=== PATIENT | male | born 1935 | race Caucasian/White ===

== ENCOUNTER 2018-10-03 17:04 | Inpatient (IN) ==
[2018-10-03] MEDS ORDERED: Dextrose Gel 15 GM/37.5 ML TUBE PO PRN ×2 (18:51)
[2018-10-03] MEDS ORDERED: D5% in Water 1,000 ML IVC PRN (18:51)
[2018-10-03] MEDS ORDERED: *HR* Dextrose 50 % in Water (Syg) 50 ML SYRINGE IVP PRN (18:51)
[2018-10-03] MEDS: Insulin LISPRO 300 UNITS/3 ML VIAL SQ SCH (21:41)
[2018-10-04] MEDS ORDERED: *HR* OxyCODONE Immed Rel 5 MG TABLET PO PRN (00:21)
[2018-10-04 07:20] LABS: Basophils # 0.1 K/mcL (0.0-0.2); Basophils % 0.8 %; Eosinophils # 0.2 K/mcL (0.0-0.6); Eosinophils % 1.5 %; Hematocrit 31.4 % (37.5-50.1); Hemoglobin 10.2 g/dL (12.9-16.9); Immature Granulocytes % 0.4 % (0-4); Lymphocytes # 1.6 K/mcL (0.6-4.6); Lymphocytes % 14.6 %; Mean Corpuscular HGB Conc 32.5 g/dL (31.6-35.5); Mean Corpuscular Volume 89.2 fL (83.0-100.0); Mean Platelet Volume 9.4 fL (9.4-12.4); Monocytes % 9.3 %; Neutrophils # 8.1 K/mcL (1.6-8.9); Platelet Count 353 K/mcL (140-400); Red Blood Count 3.52 M/mcL (4.19-5.50); Red Cell Distribution Width 12.4 % (11.5-14.5); Segmented Neutrophils % 73.4 %
[2018-10-04 07:34] LABS: BUN/Creatinine Ratio 41 (6-26); Blood Urea Nitrogen 26 mg/dL (8-23); Calcium 8.6 mg/dL (8.6-10.3); Carbon Dioxide 31 mEq/L (23-29); Chloride 101 mEq/L (98-107); Glucose 111 mg/dL (70-105); Osmolality,Calculated 285 (280-300); Potassium 4.5 mEq/L (3.5-5.1); Sodium 135 mEq/L (136-145); eGFR For Non-African Americans > 60 (> 60)
[2018-10-04] MEDS: *HR* Enoxaparin 40 MG/0.4 ML SYRINGE SQ SCH (07:40)
[2018-10-04] MEDS: Insulin LISPRO 300 UNITS/3 ML VIAL SQ SCH ×4 (08:23→21:09)
[2018-10-04] MEDS: *HR* GlipiZIDE 5 MG TABLET PO SCH ×3 (09:12→17:45)
[2018-10-04] MEDS: Sennosides/Docusate Sodium TABLET PO SCH (09:12)
--- NOTE | 2018-10-04 10:55 | Internal Med History&Physical ---
Date of Encounter: 10/04/18 Time of Encounter: 10:03 Assessment and Plan (1) Status post transmetatarsal amputation of right foot Current visit: Yes Status: Acute Patient status post right transmetatarsal amputation due to diabetic foot ulcer and gangrene. Incision site is intact and healing appropriately. No obvious signs of secondary infection. Some other superficial blister and wounds are noted without complication. He will have PT and OT for safety transfers and ambulation. The plan will be for him to return to home when it is safe to do so . (2) Fall Current visit: No Status: Acute Status post fall at [place] with hematoma on the right eyebrow area and periorbital bruising on the right side. No complication noted. No intervention for now. Qualifiers: Encounter type: initial encounter Qualified Code(s): W19.XXXA - Unspecified fall, initial encounter (3) UTI (urinary tract infection) Current visit: No Status: Resolved History of pseudomonas UTI at [place]. He was given a one day fosfomycin treatment. He has no urinary symptoms currently. Qualifiers: Urinary tract infection type: acute cystitis Hematuria presence: without hematuria Qualified Code(s): N30.00 - Acute cystitis without hematuria (4) Anemia Current visit: Yes Status: Chronic Chronic history anemia and uses iron. No other intervention for now. Qualifiers: Anemia type: unspecified type Qualified Code(s): D64.9 - Anemia, unspecified (5) DM type 2 causing complication Current visit: Yes Status: Chronic History of diabetes mellitus. However his A1c is under good control at 6.2%. We will follow his Accu-Cheks. Sliding scale available for coverage as we anticipate change in ambulation activity, recent surgery, etc. may alter his sugar control. Qualifiers: Diabetes mellitus salvage determiner insulin use: without long-term use Qualified Code(s): E11.8 - Type 2 diabetes mellitus with unspecified complications (6) PVD (peripheral vascular disease) Current visit: Yes Status: Chronic Known peripheral vascular disease and recent right revascularization of the r ight lower extremity prior to surgery. No obvious ischemic symptoms or problems noted currently (7) Constipation Current visit: Yes Status: Acute He is having some constipation and we will add medication if needed. He chronically takes senna as well. This may be related to recent surgery, bed rest and pain medication. Qualifiers: Constipation type: drug induced constipation Qualified Code(s): K59.03 - Drug induced constipation (8) DVT prophylaxis Current visit: Yes Status: Acute He will be on Lovenox for DVT prophylaxis. Internal Medicine - H&P: HPI Chief complaint: I am here to get stronger after surgery Admitted From: Hospital to Hospital Transfer Plans for Post Hospital Care: Home History of present illness: Mr. Marvin is a 82 year old male with known history of diabetes, diabetic neuropathy, peripheral vascular disease was transferred to our facility for swing bed for therapies regarding his nonweightbearing status of the right foot following transmetatarsal amputation due to diabetic ulcer and gangrene. Patient has long-standing history of diabetes and now has diabetic neuropathy as well as peripheral vascular disease. He underwent a right femoral tibial per moran trunk bypass graft with vein and right popliteal and tibial peroneal trunk and peroneal artery endarterectomy on 08/28/[address] Balderrama prior to undergoing right transmetatarsal amputation by Dr. Marinelli on 09/25/18 for diabetic foot ulcer and gangrene. It is reported that his incision is healing well, but he is supposed to be nonweightbearing until further evaluation by the surgeon. Patient states the pain is under reasonable control except he does feel a bit of "stinging" on the bottom of the right foot. Does not have much pain because of his neuropathy. He came with specific dressing changes and treatments. During the hospital stay at [place] he also, when getting out of bed, sustained a fall and has hematoma on the right eyebrow area and bruising around the right eye. He had no loss of consciousness or complication from this. Also, he had some confusion and was found to have a UTI. He was placed on Keflex but later found out the culture was positive for Pseudomonas that was resistant to Keflex and placed on fosfomycin, 1 day treatment. He denies any urinary symptoms or dysuria. Denies fevers or chills. Patient is a history of diabetes mellitus and it is under good control with the latest glycohemoglobin of 6.2%. He is admitted to our facility for PT and OT in swing bed for therapies to get him ambulating in a nonweightbearing status right foot, making safe transfers and plan to be discharged to home. He has 3 steps to get into his 1 story home. Past Med Surg Social Fam HX - Past Medical History Medical history: diabetes, GERD, hypertension, other Additional medical history: osteomylitis, PVD, peripheral neuropathy of both feet. Psychiatric history: no psych history - Past Surgical History Surgical History: appendectomy, cataract, orthopedic, other, vascular surgery (Right femoral tibial peroneal trunk bypass graft with vein and right popliteal and tibial peroneal trunk and peroneal artery endarterectomy 08/[address] Balderrama), other Additional surgical history: back surgery, Left toe foot surgery, recent right transmetatarsal amputation for gangrene and diabetic ulcer - Social History Smoking Status: Never smoker Smokeless Tobacco Status: No Alcohol use: none Drug use: none Activity Level: Uses cane/walker (Since surgery is nonweightbearing on the right lower extremity) Recent Out of Country Travel Within the Last 8 Weeks: No Exposure or Possible Exposure to Illness During Travel: No Additional social history: He has 3 steps to negotiate to get into his one-story home. He uses a bath, cannot stand up in the shower. His son and are ther e to help him. He does not have any grab bars, rails for his toilet etc. - Family History Son Adopted: No Living Status: Still Living Hx Family Endocrine Disorder: Yes (DIABETES, LOST EYE SIGHT DUE TO DIABETIC COMPLICATIONS) Father History Unknown: Yes Family Member Ethnicity: Non- Living Status: Hx Family Cardiac Disorders: No Hx Family Respiratory Disorders: No Hx Family Cancer: No Hx Family GI Disorders: No Hx Family Endocrine Disorder: No Hx Family Neuromuscular Disorders: No Hx Family Neurologic Disorders: Yes Hx Family HEENT Disorders: No Hx Family Autoimmune Disorders: No Mother Living Status: Hx Family Endocrine Disorder: Yes (Diabetic) Internal Medicine - H&P: Meds Ferrous Sulfate [Iron] 325 mg PO DAILY 09/24/18 [History] Insulin LISPRO [Humalog Kwikpen U-100] 0 - 12 unit SQ TIDAC 09/24/18 [History] Lisinopril [Zestril] 5 mg PO DAILY 09/24/18 [History] Pantoprazole Sodium [Protonix] 40 mg PO DAILY 09/24/18 [History] Sennosides/Docusate Sodium [Senna-Docusate Sodium Tablet] 1 tab PO DAILY 09/24/18 [History] glipiZIDE [Glipizide] 10 mg PO BID 09/24/18 [History] Allergy/AdvReac Type Severity Reaction Status Date / Time morphine AdvReac Hallucinati Verified 11/16/15 21:02 ng - Constitutional Constitutional: falls (As in history of present illness), no fever(s), no night sweats - EENT Eyes: no change in vision Ears: no decreased hearing, no ear discharge, no ear pain Nose, mouth and throat: no dental pain, no sore throat Additional comments: Patient wears dentures - Cardiovascular Cardiovascular ROS IM: no chest pain, no dyspnea, no dyspnea on exertion, no edema, no irregular heart rhythm, no palpitations - Respiratory Respiratory: no dyspnea, no hemoptysis, no dyspnea on exertion, no wheezing - Gastrointestinal Gastrointestinal: constipation (Patient states that his bowels have not moved well since surgery.), no abdominal pain, no diarrhea, no hematochezia, no melena, no nausea - Genitourinary Genitourinary ROS male: no difficulty urinating, no dysuria - Musculoskeletal Musculoskeletal ROS IM: as per HPI - Integumentary Integumentary IM: no rash Additional comments: His bruising around the right eye and hematoma on the right eyebrow as in history of present illness - Neurological Neurological ROS: numbness (Decreased sensation in his feet from diabetes.), no confusion, no focal weakness - Psychiatric Psychiatric: no auditory hallucinations, no confusion, no depression - Constitutional Vitals: Temp Pulse Resp BP Pulse Ox 98.4 F 75 16 174/84 96 10/04/18 08:34 10/04/18 08:34 10/04/18 08:34 10/04/18 08:34 10/04/18 08:34 General appearance: Present: cachectic, A&O X 3, no acute distress, answers questions appropriately - Head Additional comments: Hematoma on the right eyebrow. It is closed. It measures 2-3 cigarettes in diameter. He has bruising periorbital area on the right side. Bony structures appear to be intact. Gaze is conjugate. - Eye Eye exam: Present: EOMI - ENT ENT exam: Present: TM's normal bilaterally Additional comments: Patient is edentulous - Neck Neck exam general surgery: Absent: lymphadenopathy, tenderness, nuchal rigidity, thyromegaly Additional comments: Bilateral carotid bruits are heard mid to low pitched left side and faint on the right side. - Respiratory Respiratory exam: Present: CTAB - Cardiovascular Cardiovascular exam: Present: RRR, +S1, +S2, systolic murmur (1/6 systolic murmur heard best at the Alvin left sternal border.) - GI/Abdominal GI/Abdominal exam: Present: soft. Absent: hepatomegaly, mass, tenderness - Additional comments: Uncircumcised male. No obvious masses or hernias. - Extremities Exam Additional comments: Right lower extremity shows well-healed vascular scars from his previous bypass surgeries. Left foot status post fifth toe amputation Right foot shows transmetatarsal excision of all digits. Incision is intact. Still has some blood scabs noted. Healing appropriately. Posterior calcaneus area shows a 1 cm blister slightly opened and covered with protective Allevyn. 3 small scabbed blisters on the right lateral metatarsal area. There is a healing blister lesion on the dorsum of the right foot first metatarsal area. There was a scant amount of blood noted on the dressing as it was removed. - Neurological Exam Neurological exam: Present: alert, CN II-XII intact, oriented X3, strengths equal and symetr throughout Internal Med - H&P Results - Labs CBC & Chem 7: 10/04/18 05:45 10/04/18 05:45 Labs: Short CBC 10/04/18 Range/Units 05:45 WBC 11.0 (4.3-11.1) K/mcL Hgb 10.2 L (12.9-16.9) g/dL Hct 31.4 L (37.5-50.1) % Plt Count 353 (140-400) K/mcL Neutrophils # 8.1 (1.6-8.9) K/mcL BMP 10/04/18 05:45 Sodium 135 L Potassium 4.5 Chloride 101 Carbon Dioxide 31 H BUN 26 H Creatinine 0.63 L Glucose 111 H Calcium 8.6 Labs have been reviewed. Mild anemia which is chronic. No other significant localizing findings.
[2018-10-04] MEDS ORDERED: MOM Conc 10 ML UD.LIQ PO ONE (15:10)
[2018-10-04] MEDS ORDERED: Preparation H Ointment 30 GM TUBE TP PRN (17:01)
[2018-10-05] MEDS: *HR* Enoxaparin 40 MG/0.4 ML SYRINGE SQ SCH (05:42)
[2018-10-05] MEDS: Sennosides/Docusate Sodium TABLET PO SCH (08:47)
[2018-10-05] MEDS: *HR* GlipiZIDE 5 MG TABLET PO SCH ×2 (08:47→17:40)
[2018-10-05] MEDS: Insulin LISPRO 300 UNITS/3 ML VIAL SQ SCH ×4 (08:48→20:48)
--- NOTE | 2018-10-05 16:27 | Internal Med Progress Note ---
Date of Encounter: 10/05/18 Time of Encounter: 16:25 - Assessment and plan (1) Status post transmetatarsal amputation of right foot Current Visit: Yes Status: Acute Assessment and plan: He seems to be doing well postoperatively. Vitals are stable. I will check his incision tomorrow. Nurses report no problems acutely. (2) Fall Current Visit: No Status: Acute Assessment and plan: Previous falling episode with hematoma in the right eyebrow area and periorbital bruising in the right side. No recurrence noted. Qualifiers: Encounter type: initial encounter Qualified Code(s): W19.XXXA - Unspecified fall, initial encounter (3) Anemia Current Visit: Yes Status: Chronic Qualifiers: Anemia type: unspecified type Qualified Code(s): D64.9 - Anemia, unspecified (4) DM type 2 causing complication Current Visit: Yes Status: Chronic Assessment and plan: His blood sugars have been somewhat labile. We need to watch for hypoglycemia because of the sulfonylurea. Overall his glycohemoglobin has been under good control. Postoperatively his sugars have been elevated intermittently. Qualifiers: Diabetes mellitus termite control representative insulin use: without termite control representative use Qualified Code(s): E11.8 - Type 2 diabetes mellitus with unspecified complications (5) PVD (peripheral vascular disease) Current Visit: Yes Status: Chronic Assessment and plan: No claudication symptoms. Extremities are without cyanosis. (6) Constipation Current Visit: Yes Status: Acute Assessment and plan: Constipation situation is much improved. He voices no acute complaints today. He did have a bowel movement after having been treated with milk of magnesia. Qualifiers: Constipation type: drug induced constipation Qualified Code(s): K59.03 - Drug induced constipation (7) DVT prophylaxis Current Visit: Yes Status: Acute - Subjective Interval history: Patient states that he feels fine today. He denies any respiratory, cardiac or GI symptoms. He finally got his bowels to move. No urinary symptoms. No pain in his right lower extremity, "I have a little bit of tickle with it". He has known neuropathy of both lower extremities. Nurses reported that he was antsy yesterday about not having a bowel movement, wanted to get to the bedside commode frequently because he felt he was going to have a bowel movement, etc. that he did not get evaluated for therapy yesterday. They were to evaluate him today. He states he feels better today. - Constitutional Vitals: Temp Pulse Resp BP Pulse Ox 98.9 F 78 16 160/77 97 10/05/18 09:08 10/05/18 09:08 10/05/18 09:08 10/05/18 09:08 10/05/18 09:08 General appearance: Present: cachectic, A&O X 3, no acute distress, answers qu estions appropriately - Respiratory Respiratory exam: Present: CTAB - Cardiovascular Cardiovascular exam: Present: RRR, +S1, +S2 - GI/Abdominal GI/Abdominal exam: Present: soft. Absent: tenderness - Extremities Exam Additional comments: No ankle edema. Left foot evaluation is normal without cutaneous changes. Right foot is in the sterile dressing and I did not reevaluate today. Internal Medicine: Result - Labs CBC & Chem 7: 10/04/18 05:45 10/04/18 05:45 Consult Discharge Plan - Plan Referrals: Ernestina Rush, [employer] [employer]IVER [Primary Care Provider] -
[2018-10-06 05:55] LABS: Basophils # 0.1 K/mcL (0.0-0.2); Basophils % 0.6 %; Eosinophils # 0.1 K/mcL (0.0-0.6); Eosinophils % 1.1 %; Hematocrit 32.2 % (37.5-50.1); Hemoglobin 10.4 g/dL (12.9-16.9); Immature Granulocytes % 0.6 % (0-4); Lymphocytes # 1.9 K/mcL (0.6-4.6); Lymphocytes % 15.6 %; Mean Corpuscular HGB Conc 32.3 g/dL (31.6-35.5); Mean Corpuscular Hemoglobin 28.7 pg (28.0-33.3); Mean Platelet Volume 9.2 fL (9.4-12.4); Neutrophils # 8.8 K/mcL (1.6-8.9); Platelet Count 386 K/mcL (140-400); Red Blood Count 3.62 M/mcL (4.19-5.50); Red Cell Distribution Width 12.4 % (11.5-14.5); Segmented Neutrophils % 74.1 %
[2018-10-06] MEDS: *HR* Enoxaparin 40 MG/0.4 ML SYRINGE SQ SCH (05:57)
[2018-10-06 06:14] LABS: BUN/Creatinine Ratio 38 (6-26); Blood Urea Nitrogen 22 mg/dL (8-23); Calcium 8.5 mg/dL (8.6-10.3); Carbon Dioxide 32 mEq/L (23-29); Chloride 98 mEq/L (98-107); Glucose 117 mg/dL (70-105); Osmolality,Calculated 278 (280-300); Potassium 4.5 mEq/L (3.5-5.1); Sodium 132 mEq/L (136-145); eGFR For Non-African Americans > 60 (> 60)
--- NOTE | 2018-10-06 07:19 | Internal Med Progress Note ---
Date of Encounter: 10/06/18 Time of Encounter: 07:17 - Assessment and plan (1) Status post transmetatarsal amputation of right foot Current Visit: Yes Status: Acute Assessment and plan: Status post transmetatarsal" of right foot. Appears be healing appropriately well. He will resume his therapies today and nonweightbearing status. Wound clinic to evaluate as well. (2) Fall Current Visit: No Status: Acute Assessment and plan: Healing hematoma on the right eyebrow area and periorbital bruising from his fall at [place]. No recurrence. Qualifiers: Encounter type: initial encounter Qualified Code(s): W19.XXXA - Unspecified fall, initial encounter (3) Anemia Current Visit: Yes Status: Chronic Assessment and plan: Anemia is stable. Qualifiers: Anemia type: unspecified type Qualified Code(s): D64.9 - Anemia, unspecifi ed (4) DM type 2 causing complication Current Visit: Yes Status: Chronic Assessment and plan: Sugars are improving. Continue the same. Qualifiers: Diabetes mellitus alf insulin use: without technician terminal and repeater use Qualified Code(s): E11.8 - Type 2 diabetes mellitus with unspecified complications (5) PVD (peripheral vascular disease) Current Visit: Yes Status: Chronic (6) Constipation Current Visit: Yes Status: Acute Assessment and plan: He states his bowels are moving better now. Qualifiers: Constipation type: drug induced constipation Qualified Code(s): K59.03 - Drug induced constipation (7) DVT prophylaxis Current Visit: Yes Status: Acute - Subjective Interval history: Patient asked that he is doing well. He denies a cardiac respiratory symptoms. No GI symptoms. Good appetite and he is eating well. No pain in his right lower extremity. He states that his bowels are moving well now. Nurses report no issues or problems. - Constitutional Vitals: Temp Pulse Resp BP Pulse Ox 98.1 F 94 16 159/84 97 10/06/18 04:00 10/06/18 04:00 10/06/18 04:00 10/06/18 04:00 10/06/18 04:00 General appearance: Present: cachectic, A&O X 3, no acute distress, answers questions appropriately - Respiratory Respiratory exam: Present: CTAB - Cardiovascular Cardiovascular exam: Present: RRR, +S1, +S2, systolic murmur (2/6 systolic murmur) - GI/Abdominal GI/Abdominal exam: Present: soft. Absent: tenderness - Extremities Exam Additional comments: Right lower extremity was unwrapped. Sutures are intact. There are some blood scabs between sutures. There is generalized pink discoloration but it is not hot. There is no fluctuance. He is appropriately tender. 3 healing blisters on the right lateral metatarsal region. Healing blister on the dorsum of the foot. Allevyn protective dressing on the posterior calcaneal blister is stable. Left was evaluated. Dry skin but no open lesions. Heel is not mushy or broken down Internal Medicine: Result - Labs CBC & Chem 7: 10/06/18 05:30 10/06/18 05:30 Labs: Short CBC 10/06/18 Range/Units 05:30 WBC 11.9 H (4.3-11.1) K/mcL Hgb 10.4 L (12.9-16.9) g/dL Hct 32.2 L (37.5-50.1) % Plt Count 386 (140-400) K/mcL Neutrophils # 8.8 (1.6-8.9) K/mcL BMP 10/06/18 05:30 Sodium 132 L Potassium 4.5 Chloride 98 Carbon Dioxide 32 H BUN 22 Creatinine 0.58 L Glucose 117 H Calcium 8.5 L Labs were reviewed. White count is minimally elevated stable. Hemoglobin is stable mild hyponatremia. Renal function is good. His blood sugars are overall improving. Consult Discharge Plan - Plan Referrals: Ernestina Rush CNP [Primary Care Provider] -
[2018-10-06] MEDS: Insulin LISPRO 300 UNITS/3 ML VIAL SQ SCH ×4 (08:04→22:06)
[2018-10-06] MEDS: Sennosides/Docusate Sodium TABLET PO SCH (08:40)
[2018-10-06] MEDS: *HR* GlipiZIDE 5 MG TABLET PO SCH ×2 (08:40→17:20)
[2018-10-07] MEDS: *HR* Enoxaparin 40 MG/0.4 ML SYRINGE SQ SCH (05:17)
[2018-10-07] MEDS: Insulin LISPRO 300 UNITS/3 ML VIAL SQ SCH ×4 (07:55→21:21)
[2018-10-07] MEDS: *HR* GlipiZIDE 5 MG TABLET PO SCH ×2 (09:25→17:10)
[2018-10-07] MEDS: Sennosides/Docusate Sodium TABLET PO SCH (09:25)
--- NOTE | 2018-10-07 11:17 | Internal Med Progress Note ---
Date of Encounter: 10/07/18 Time of Encounter: 11:15 - Assessment and plan (1) Status post transmetatarsal amputation of right foot Current Visit: Yes Status: Acute Assessment and plan: Continue with therapies for his nonweightbearing postop care right lower extremity (2) Fall Current Visit: No Status: Acute Qualifiers: Encounter type: initial encounter Qualified Code(s): W19.XXXA - Unspecified fall, initial encounter (3) Anemia Current Visit: Yes Status: Chronic Qualifiers: Anemia type: unspecified type Qualified Code(s): D64.9 - Anemia, unspecified (4) DM type 2 causing complication Current Visit: Yes Status: Chronic Qualifiers: Diabetes mellitus terminal gauger supervisor insulin use: without terminal gauger supervisor use Qualified Code(s): E11.8 - Type 2 diabetes mellitus with unspecified complications (5) PVD (peripheral vascular disease) Current Visit: Yes Status: Chronic (6) Constipation Current Visit: Yes Status: Acute Qualifiers: Constipation type: drug induced constipation Qualified Code(s): K59.03 - Drug induced constipation (7) DVT prophylaxis Current Visit: Yes Status: Acute - Subjective Interval history: Patient has no acute complaints. Denies any cardiac or respiratory symptoms. Does not need pain medication for his neuropathic lower extremity even having had surgery. He thinks he is doing well. I talked to the therapist and she said that they are working on squat transfers in and out of the wheelchair. Balance and proprioception is a problem for him. - Constitutional Vitals: Temp Pulse Resp BP Pulse Ox 98.4 F 99 16 159/69 97 10/07/18 07:26 10/07/18 07:26 10/07/18 07:26 10/07/18 07:26 10/07/18 07:26 General appearance: Present: cachectic, A&O X 3, no acute distress, answers questions appropriately Exam: I saw the patient in the hallway in the wheelchair with the therapist. Brief interaction. Internal Medicine: Result - Labs CBC & Chem 7: 10/06/18 05:30 10/06/18 05:30 Consult Discharge Plan - Plan Referrals: Ernestina Rush, ACTIVITY MANAGER [Primary Care Provider] -
[2018-10-08] MEDS: *HR* Enoxaparin 40 MG/0.4 ML SYRINGE SQ SCH (04:39)
--- NOTE | 2018-10-08 09:51 | Internal Med Progress Note ---
Date of Encounter: 10/08/18 Time of Encounter: 09:51 - Assessment and plan (1) Status post transmetatarsal amputation of right foot Current Visit: Yes Status: Acute Assessment and plan: Continue with PT and OT. (2) Fall Current Visit: No Status: Acute Qualifiers: Encounter type: initial encounter Qualified Code(s): W19.XXXA - Unspecified fall, initial encounter (3) Anemia Current Visit: Yes Status: Chronic Qualifiers: Anemia type: unspecified type Qualified Code(s): D64.9 - Anemia, unspecified (4) DM type 2 causing complication Current Visit: Yes Status: Chronic Assessment and plan: Sugars were somewhat labile, but not having hypoglycemic reactions. Continue to monitor. Qualifiers: Diabetes mellitus label remover insulin use: without label remover use Qualified Code(s): E11.8 - Type 2 diabetes mellitus with unspecified complications (5) PVD (peripheral vascular disease) Current Visit: Yes Status: Chronic (6) Constipation Current Visit: Yes Status: Acute Assessment and plan: Constipation is resolved, his stools are loose now and will hold his senna Qualifiers: Constipation type: drug induced constipation Qualified Code(s): K59.03 - Drug induced constipation (7) DVT prophylaxis Current Visit: Yes Status: Acute - Subjective Interval history: Patient voices no acute symptoms other than loose stools. He denies any chest, respiratory, cardiac, abdominal pain symptoms. I saw him in the therapeutic guarding. He has wheeled himself up and down the sidewalk in the wheelchair without difficulties. - Constitutional Vitals: Temp Pulse Resp BP Pulse Ox 98.4 F 71 16 143/60 95 10/08/18 07:00 10/08/18 07:00 10/08/18 07:00 10/08/18 07:00 10/08/18 07:00 General appearance: Present: cachectic, A&O X 3, no acute distress, answers questions appropriately Exam: I saw him to therapy regarding. He was in his wheelchair. He is in no distress. I did not do a more formal examination done that. Internal Medicine: Result - Labs CBC & Chem 7: 10/06/18 05:30 10/06/18 05:30 Consult Discharge Plan - Plan Referrals: Ernestina Rush, SEM MANAGER [Primary Care Provider] -
[2018-10-08] MEDS: Insulin LISPRO 300 UNITS/3 ML VIAL SQ SCH ×4 (11:43→20:46)
[2018-10-08] MEDS: traMADol 50 MG TABLET PO PRN (11:47)
[2018-10-08] MEDS: *HR* GlipiZIDE 5 MG TABLET PO SCH ×2 (11:47→18:08)
[2018-10-08] MEDS: Sennosides/Docusate Sodium TABLET PO SCH (11:48)
[2018-10-09] MEDS: traMADol 50 MG TABLET PO PRN ×2 (04:01→08:41)
[2018-10-09] MEDS: *HR* Enoxaparin 40 MG/0.4 ML SYRINGE SQ SCH (04:02)
[2018-10-09] MEDS: *HR* GlipiZIDE 5 MG TABLET PO SCH ×2 (08:40→17:00)
[2018-10-09] MEDS: Insulin LISPRO 300 UNITS/3 ML VIAL SQ SCH ×4 (08:41→21:15)
--- NOTE | 2018-10-09 15:59 | Internal Med Progress Note ---
Date of Encounter: 10/09/18 Time of Encounter: 15:56 - Assessment and plan (1) Status post transmetatarsal amputation of right foot Current Visit: Yes Status: Acute Assessment and plan: Continues with PT and OT and trying to be nonweightbearing of the right lower extremity to have safe ADLs prior to going home. (2) Fall Current Visit: No Status: Acute Qualifiers: Encounter type: initial encounter Qualified Code(s): W19.XXXA - Unspecified fall, initial encounter (3) Anemia Current Visit: Yes Status: Chronic Qualifiers: Anemia type: unspecified type Qualified Code(s): D64.9 - Anemia, unspecified (4) DM type 2 causing complication Current Visit: Yes Status: Chronic Assessment and plan: Sugars are under reasonably good control and more stable now. Qualifiers: Diabetes mellitus computer terminal operator insulin use: without computer terminal operator use Qualified Code(s): E11.8 - Type 2 diabetes mellitus with unspecified complications (5) PVD (peripheral vascular disease) Current Visit: Yes Status: Chronic (6) Constipation Current Visit: Yes Status: Resolved Qualifiers: Constipation type: drug induced constipation Qualified Code(s): K59.03 - D rug induced constipation (7) DVT prophylaxis Current Visit: Yes Status: Acute - Subjective Interval history: He voices no acute symptoms. Denies any cardiac or respiratory symptoms. His pain is under good control, he has peripheral neuropathy. No acute GI symptoms now. - Constitutional Vitals: Temp Pulse Resp BP Pulse Ox 98.1 F 78 16 109/52 97 10/09/18 07:00 10/09/18 07:00 10/09/18 07:00 10/09/18 07:00 10/09/18 07:00 General appearance: Present: cachectic, A&O X 3, no acute distress, answers questions appropriately - Respiratory Respiratory exam: Present: CTAB - Cardiovascular Cardiovascular exam: Present: RRR, +S1, +S2, systolic murmur (1 to 2/6 systolic murmur) - GI/Abdominal GI/Abdominal exam: Present: soft. Absent: mass, tenderness - Incison Comments: Right foot status post TMA was unwrapped and evaluated. Sutures are intact. Still some dried blood between the sutures. There is appropriate redness around without fluctuance or tenderness or linear streaks. The blister on the posterior calcaneal area appears intact without drainage and is flat. Covered with Allevyn. Internal Medicine: Result - Labs CBC & Chem 7: 10/06/18 05:30 10/06/18 05:30 Consult Discharge Plan - Plan Referrals: Ernestina Rush, SENIOR MANAGER [facility] [Primary Care Provider] -
[2018-10-10] MEDS: *HR* Enoxaparin 40 MG/0.4 ML SYRINGE SQ SCH (05:11)
[2018-10-10] MEDS: *HR* OxyCODONE Immed Rel 5 MG TABLET PO PRN ×2 (05:11→22:27)
--- NOTE | 2018-10-10 07:41 | Internal Med Progress Note ---
Date of Encounter: 10/10/18 Time of Encounter: 07:37 - Assessment and plan (1) Status post transmetatarsal amputation of right foot Current Visit: Yes Status: Acute Assessment and plan: He remains nonweightbearing in the right lower extremity. Postoperative evaluation appears to be healing appropriately well. Uses a minimal amount of pain medication. He remains nonambulatory because of his inability to walk safely with nonweightbearing right lower extremity and because of proprioception and imbalance of the left lower extremity. Right now they are working on transfers from wheelchair to toilet and bed etc. He has follow-up with podiatry next (2) Fall Current Visit: No Status: Acute Assessment and plan: Had a falling episode at [facility]. His hematoma and bruising in the right periorbital area is healing appropriately well. No recurrence of falling episodes. Qualifiers: Encounter type: initial encounter Qualified Code(s): W19.XXXA - Unspecified fall, initial encounter (3) Anemia Current Visit: Yes Status: Chronic Qualifiers: Anemia type: unspecified type Qualified Code(s): D64.9 - Anemia, unspecified (4) DM type 2 causing complication Current Visit: Yes Status: Chronic Assessment and plan: His sugars are relatively under good control. Occasional hyperglycemic episode. Overall improved since his admission. Qualifiers: Diabetes mellitus manager intermediate insulin use: without assisted use Qualified Code(s): E11.8 - Type 2 diabetes mellitus with unspecified complications (5) PVD (peripheral vascular disease) Current Visit: Yes Status: Chronic (6) Constipation Current Visit: Yes Status: Resolved Qualifiers: Constipation type: drug induced constipation Qualified Code(s): K59.03 - Drug induced constipation (7) DVT prophylaxis Current Visit: Yes Status: Acute - Subjective Interval history: Patient denies any cardiac, respiratory, GI or symptoms. He has a "stinging" kind of pain in the right foot postoperatively. Therapy reports the patient is basically nonambulatory because he is nonweightbearing in the right lower extremity and his balance and proprioception is bad with the left lower extremity. - Constitutional Vitals: Temp Pulse Resp BP Pulse Ox 98.0 F 78 18 156/74 96 10/09/18 19:00 10/09/18 19:00 10/09/18 19:00 10/09/18 19:00 10/09/18 19:00 General appearance: Present: cachectic, A&O X 3, no acute distress, answers questions appropriately - Respiratory Respiratory exam: Present: CTAB - Cardiovascular Cardiovascular exam: Present: RRR, +S1, +S2, systolic murmur (2/6 systolic murmur) - GI/Abdominal GI/Abdominal exam: Present: soft. Absent: tenderness - Extremities Exam Additional comments: Left lower extremity shows foot to be intact, warm and dry. Dry skin is noted. Heel is intact. Right lower extremity shows dressing intact. I removed the dressing and evaluated his postoperative TMA. Reema and sutures are intact. Some dried blood between the sutures. The surrounding skin is pink but no fluctuance or purulent drainage or odor. Healed scabbed blisters on the lateral aspect of the fifth metatarsal. Healed blister on the dorsum of the foot. Allevyn removed on the heel and the posterior calcaneal blister is flat and healing. The plantar heel is intact. Internal Medicine: Result - Labs CBC & Chem 7: 10/06/18 05:30 10/06/18 05:30 Consult Discharge Plan - Plan Referrals: Ernestina Rush, MANAGER REGULATORY [Primary Care Provider] -
[2018-10-10] MEDS: Insulin LISPRO 300 UNITS/3 ML VIAL SQ SCH ×4 (07:57→22:26)
[2018-10-10] MEDS: *HR* GlipiZIDE 5 MG TABLET PO SCH ×2 (08:50→17:38)
[2018-10-11] MEDS: *HR* Enoxaparin 40 MG/0.4 ML SYRINGE SQ SCH (05:40)
[2018-10-11] MEDS: Insulin LISPRO 300 UNITS/3 ML VIAL SQ SCH ×4 (08:15→20:33)
[2018-10-11] MEDS: *HR* GlipiZIDE 5 MG TABLET PO SCH ×2 (08:20→16:40)
--- NOTE | 2018-10-11 09:36 | Internal Med Progress Note ---
Date of Encounter: 10/11/18 Time of Encounter: 09:34 - Assessment and plan (1) Status post transmetatarsal amputation of right foot Current Visit: Yes Status: Acute Assessment and plan: As noted, this looks like it is healing well. (2) Anemia Current Visit: Yes Status: Chronic Assessment and plan: Currently well tolerated. Qualifiers: Anemia type: unspecified type Qualified Code(s): D64.9 - Anemia, unspecified (3) DM type 2 causing complication Current Visit: Yes Status: Chronic Assessment and plan: He is under good control, recently. Qualifiers: Diabetes mellitus [facility] insulin use: without terminal carman use Qualified Code(s): E11.8 - Type 2 diabetes mellitus with unspecified complications (4) PVD (peripheral vascular disease) Current Visit: Yes Status: Chronic Assessment and plan: No signs of additional breakdown. (5) Constipation Current Visit: Yes Status: Resolved Assessment and plan: Patient is stating that this has resolved, recently. Qualifiers: Constipation type: drug induced constipation Qualified Code(s): K59.03 - Drug induced constipation - Subjective Interval history: Patient is without complaint. He denies pain in his right foot. He states that bowels and bladder are moving and working well. He denies other problems. Patient has no complaint of chest discomfort, dyspnea, orthopnea, palpitations, nausea or vomiting, constipation or diarrhea, other changes in bowel habits, difficulty with urination, rash or itching, or other new complaints, except as mentioned above. Review of systems is otherwise negative. I discussed management of her care with nursing staff. - Constitutional Vitals: Temp Pulse Resp BP Pulse Ox 98.6 F 69 14 126/66 94 10/11/18 07:00 10/11/18 07:00 10/11/18 07:00 10/11/18 07:00 10/11/18 07:00 Exam: Examination: (Except as mentioned above): General: In no apparent distress. Alert and oriented 3. Nondiaphoretic. Head: Atraumatic and normocephalic. Respiratory: No use of accessory muscles. Lungs are clear throughout. Normal airflow. Cardiovascular: Regular rate and rhythm without murmur appreciated. Abdomen: Bowel sounds are normal. No hepatosplenomegaly mass or tenderness appreciated. Obese and therefore difficult to palpate deeply. Extremities: No cyanosis clubbing or edema. Right foot transmetatarsal stump has erythema at wound no drainage of significance and no increase in erythema spreading proximally. In other words, it does not look infected but seems to be healing. No cord or calf tenderness, bilaterally. Skin: Warm and non-diaphoretic with no new lesions noted. Internal Medicine: Result - Labs CBC & Chem 7: 10/06/18 05:30 10/06/18 05:30 Consult Discharge Plan - Plan Referrals: Ernestina Rush, BINDERY MANAGER [Primary Care Provider] -
[2018-10-12] MEDS: *HR* Enoxaparin 40 MG/0.4 ML SYRINGE SQ SCH (05:28)
[2018-10-12] MEDS: Insulin LISPRO 300 UNITS/3 ML VIAL SQ SCH ×4 (08:09→20:04)
[2018-10-12] MEDS: *HR* GlipiZIDE 5 MG TABLET PO SCH ×2 (08:35→16:25)
--- NOTE | 2018-10-12 13:51 | Internal Med Progress Note ---
Date of Encounter: 10/12/18 Time of Encounter: 13:51 - Assessment and plan (1) Status post transmetatarsal amputation of right foot Current Visit: Yes Status: Acute Assessment and plan: Clinically stable. (2) Anemia Current Visit: Yes Status: Chronic Assessment and plan: Clinically well tolerated, currently. Qualifiers: Anemia type: unspecified type Qualified Code(s): D64.9 - Anemia, unspecified (3) DM type 2 causing complication Current Visit: Yes Status: Chronic Assessment and plan: We will continue current regimen as control seems adequate for hospitalized patient. Qualifiers: Diabetes mellitus meterman insulin use: without care home use Qualified Code(s): E11.8 - Type 2 diabetes mellitus with unspecified complications (4) PVD (peripheral vascular disease) Current Visit: Yes Status: Chronic Assessment and plan: No acute findings. (5) Constipation Current Visit: Yes Status: Resolved Assessment and plan: No complaints, today. Qualifiers: Constipation type: drug induced constipation Qualified Code(s): K59.03 - Drug induced constipation - Subjective Interval history: Patient is without complaint. He wants to know when he can go home. I deferred this to Dr. Zayas. He denies other problems including no bowel or bladder problems. Patient has no complaint of chest discomfort, dyspnea, orthopnea, palpitations, nausea or vomiting, constipation or diarrhea, other changes in bowel habits, difficulty with urination, rash or itching, or other new complaints, except as mentioned above. Review of systems is otherwise negative. I discussed management of her care with nursing staff. - Constitutional Vitals: Temp Pulse Resp BP Pulse Ox 97.9 F 78 17 142/72 97 10/12/18 07:59 10/12/18 07:59 10/12/18 07:59 10/12/18 07:59 10/12/18 07:59 Exam: Examination: (Except as mentioned above): General: In no apparent distress. Alert and oriented 3. Nondiaphoretic. Head: Atraumatic and normocephalic. Respiratory: No use of accessory muscles. Lungs are clear throughout. Normal airflow. Cardiovascular: Regular rate and rhythm without murmur appreciated. Abdomen: Bowel sounds are normal. No hepatosplenomegaly mass or tenderness appreciated. Obese and therefore difficult to palpate deeply. Extremities: No cyanosis clubbing or edema. Right foot stump and wounds are not examined today as they are not undressed. Skin: Warm and non-diaphoretic with no new lesions noted. Internal Medicine: Result - Labs CBC & Chem 7: 10/06/18 05:30 10/06/18 05:30 Consult Discharge Plan - Plan Referrals: Ernestina Rush CNP [Primary Care Provider] -
[2018-10-13] MEDS: *HR* Enoxaparin 40 MG/0.4 ML SYRINGE SQ SCH (05:57)
--- NOTE | 2018-10-13 07:28 | Internal Med Progress Note ---
Date of Encounter: 10/13/18 Time of Encounter: 07:25 - Assessment and plan (1) Status post transmetatarsal amputation of right foot Current Visit: Yes Status: Acute Assessment and plan: His incision area looks appropriate and a lot less redness today. This is followed by wound clinic. (2) Fall Current Visit: No Status: Acute Qualifiers: Encounter type: initial encounter Qualified Code(s): W19.XXXA - Unspecified fall, initial encounter (3) Anemia Current Visit: Yes Status: Chronic Assessment and plan: We will be rechecking his hemoglobin today. Qualifiers: Anemia type: unspecified type Qualified Code(s): D64.9 - Anemia, unspecified (4) DM type 2 causing complication Current Visit: Yes Status: Chronic Assessment and plan: Sugars are under reasonable control. Qualifiers: Diabetes mellitus long lines operator insulin use: without long lines operator use Qualified Code(s): E11.8 - Type 2 diabetes mellitus with unspecified complications (5) PVD (peripheral vascular disease) Current Visit: Yes Status: Chronic (6) Constipation Current Visit: Yes Status: Resolved Qualifiers: Constipation type: drug induced constipation Qualified Code(s): K59.03 - Drug induced constipation (7) DVT prophylaxis Current Visit: Yes Status: Acute - Subjective Interval history: Patient denies any acute symptoms. Denies any cardiac or respiratory symptoms. Pain is under good control with his foot. Nurses report that it is still difficult to do transfers with him. Sometimes there is some cognitive confusion, likely age-related, and he gets frustrated when he cannot get his to answer the phone. - Constitutional Vitals: Temp Pulse Resp BP Pulse Ox 98.2 F 104 18 159/77 96 10/12/18 19:06 10/12/18 19:06 10/12/18 19:06 10/12/18 19:06 10/12/18 19:06 General appearance: Present: A&O X 3, no acute distress, answers questions appropriately - Respiratory Respiratory exam: Present: CTAB - Cardiovascular Cardiovascular exam: Present: distant heart sounds, RRR, +S1, +S2 - GI/Abdominal GI/Abdominal exam: Present: soft. Absent: tenderness - Extremities Exam Additional comments: There is no calf tenderness. Incision of right foot was evaluated. The redness is almost completely gone. There is some maceration of the lateral incision area. No drainage. No foul odor. Internal Medicine: Result - Labs CBC & Chem 7: 10/06/18 05:30 10/06/18 05:30 Labs: Labs have been ordered for today. Consult Discharge Plan - Plan Referrals: Ernestina Rush, FLAMER SEALER [Primary Care Provider] -
[2018-10-13] MEDS: Insulin LISPRO 300 UNITS/3 ML VIAL SQ SCH ×4 (07:36→20:45)
[2018-10-13] MEDS: *HR* GlipiZIDE 5 MG TABLET PO SCH ×2 (07:49→17:07)
[2018-10-13 07:57] LABS: Basophils # 0.1 K/mcL (0.0-0.2); Basophils % 0.5 %; Eosinophils # 0.2 K/mcL (0.0-0.6); Eosinophils % 1.7 %; Hematocrit 32.3 % (37.5-50.1); Hemoglobin 10.7 g/dL (12.9-16.9); Immature Granulocytes % 0.7 % (0-4); Lymphocytes # 2.2 K/mcL (0.6-4.6); Lymphocytes % 18.1 %; Mean Corpuscular HGB Conc 33.1 g/dL (31.6-35.5); Mean Corpuscular Hemoglobin 29.2 pg (28.0-33.3); Mean Corpuscular Volume 88.3 fL (83.0-100.0); Mean Platelet Volume 8.6 fL (9.4-12.4); Monocytes # 0.9 K/mcL (0.0-1.3); Monocytes % 7.8 %; Neutrophils # 8.5 K/mcL (1.6-8.9); Platelet Count 484 K/mcL (140-400); Red Blood Count 3.66 M/mcL (4.19-5.50); Red Cell Distribution Width 12.5 % (11.5-14.5); Segmented Neutrophils % 71.2 %
[2018-10-13 08:07] LABS: BUN/Creatinine Ratio 37 (6-26); Blood Urea Nitrogen 20 mg/dL (8-23); Calcium 8.6 mg/dL (8.6-10.3); Carbon Dioxide 33 mEq/L (23-29); Chloride 94 mEq/L (98-107); Glucose 119 mg/dL (70-105); Osmolality,Calculated 272 (280-300); Potassium 4.7 mEq/L (3.5-5.1); Sodium 129 mEq/L (136-145); eGFR For Non-African Americans > 60 (> 60)
[2018-10-13] MEDS: *HR* OxyCODONE Immed Rel 5 MG TABLET PO PRN ×2 (10:36→20:45)
[2018-10-14] MEDS: *HR* Enoxaparin 40 MG/0.4 ML SYRINGE SQ SCH (06:07)
--- NOTE | 2018-10-14 06:59 | Internal Med Progress Note ---
Date of Encounter: 10/14/18 Time of Encounter: 06:59 - Assessment and plan (1) Status post transmetatarsal amputation of right foot Current Visit: Yes Status: Acute Assessment and plan: Continue with physical therapy due to nonweightbearing of the right lower extremity status post podiatric surgery. I did not evaluate the wound today, but I hear it is doing better. Followed by wound clinic. (2) Fall Current Visit: No Status: Resolved Qualifiers: Encounter type: initial encounter Qualified Code(s): W19.XXXA - Unspecified fall, initial encounter (3) Anemia Current Visit: Yes Status: Chronic Assessment and plan: Chronic and stable anemia. Qualifiers: Anemia type: unspecified type Qualified Code(s): D64.9 - Anemia, unspecified (4) DM type 2 causing complication Current Visit: Yes Status: Chronic Assessment and plan: Sugars are under relatively good control. Overall glycohemoglobin controlled. Occasional coverage with insulin needed. Qualifiers: Diabetes mellitus residential insulin use: without residential use Qualified Code(s): E11.8 - Type 2 diabetes mellitus with unspecified complications (5) PVD (peripheral vascular disease) Current Visit: Yes Status: Chronic (6) Constipation Current Visit: Yes Status: Resolved Qualifiers: Constipation type: drug induced constipation Qualified Code(s): K59.03 - Drug induced constipation (7) DVT prophylaxis Current Visit: Yes Status: Acute (8) Hyponatremia Current Visit: Yes Status: Acute Assessment and plan: Hyponatremia noted on lab work today. He does not take a diuretic. He does not have polydipsia/increased oral liquid intake. No particular symptoms. We will repeat tomorrow. Right now I do not think we should restrict his fluids. - Subjective Interval history: Patient denies any cardiac or respiratory symptoms. His pain is under good control. I did not evaluate his foot today. He is being followed by wound clinic. Tentative discharge date is , in 2 days. - Constitutional Vitals: Temp Pulse Resp BP Pulse Ox 98.5 F 102 16 150/81 94 10/13/18 19:21 10/13/18 19:21 10/13/18 19:21 10/13/18 19:21 10/13/18 19:21 General appearance: Present: A&O X 3, no acute distress, answers questions appropriately - Respiratory Respiratory exam: Present: CTAB - Cardiovascular Cardiovascular exam: Present: RRR, +S1, +S2 - GI/Abdominal GI/Abdominal exam: Present: soft. Absent: tenderness - Extremities Exam Additional comments: Right foot has sterile dressing and his boot in place. I did not evaluate today. No calf tenderness or swelling. Internal Medicine: Result - Labs CBC & Chem 7: 10/13/18 07:41 10/13/18 07:41 Labs: Short CBC 10/13/18 Range/Units 07:41 WBC 11.9 H (4.3-11.1) K/mcL Hgb 10.7 L (12.9-16.9) g/dL Hct 32.3 L (37.5-50.1) % Plt Count 484 H (140-400) K/mcL Neutrophils # 8.5 (1.6-8.9) K/mcL BMP 10/13/18 07:41 Sodium 129 L Potassium 4.7 Chloride 94 L Carbon Dioxide 33 H BUN 20 Creatinine 0.54 L Glucose 119 H Calcium 8.6 Sodium is low at 129. White blood cell count hemoglobin is stable. Consult Discharge Plan - Plan Referrals: Ernestina Rush, BODY SPECIALIST [Primary Care Provider] -
[2018-10-14] MEDS: *HR* GlipiZIDE 5 MG TABLET PO SCH ×2 (07:43→17:16)
[2018-10-14] MEDS: Sennosides/Docusate Sodium TABLET PO SCH (07:43)
[2018-10-14] MEDS: Insulin LISPRO 300 UNITS/3 ML VIAL SQ SCH ×4 (10:21→20:20)
[2018-10-14] MEDS: *HR* OxyCODONE Immed Rel 5 MG TABLET PO PRN (19:43)
[2018-10-15] MEDS: *HR* Enoxaparin 40 MG/0.4 ML SYRINGE SQ SCH (05:35)
[2018-10-15] MEDS: *HR* GlipiZIDE 5 MG TABLET PO SCH ×3 (09:34→18:28)
[2018-10-15] MEDS: Sennosides/Docusate Sodium TABLET PO SCH (09:35)
[2018-10-15] MEDS: Insulin LISPRO 300 UNITS/3 ML VIAL SQ SCH ×4 (09:35→20:40)
--- NOTE | 2018-10-15 09:46 | Internal Med Progress Note ---
Date of Encounter: 10/15/18 Time of Encounter: 09:44 - Assessment and plan (1) Status post transmetatarsal amputation of right foot Current Visit: Yes Status: Acute Assessment and plan: Continues to advance with PT and OT. Plan for discharge tomorrow and follow-up with Dr. Marinelli in the afternoon (2) Fall Current Visit: No Status: Resolved Qualifiers: Encounter type: initial encounter Qualified Code(s): W19.XXXA - Unspecified fall, initial encounter (3) Anemia Current Visit: Yes Status: Chronic Qualifiers: Anemia type: unspecified type Qualified Code(s): D64.9 - Anemia, unspecified (4) DM type 2 causing complication Current Visit: Yes Status: Chronic Assessment and plan: Sugars are under fairly good control. Needs occasional coverage. Qualifiers: Diabetes mellitus exterminator termite insulin use: without exterminator termite use Qualified Co de(s): E11.8 - Type 2 diabetes mellitus with unspecified complications (5) PVD (peripheral vascular disease) Current Visit: Yes Status: Chronic (6) Constipation Current Visit: Yes Status: Resolved Qualifiers: Constipation type: drug induced constipation Qualified Code(s): K59.03 - Drug induced constipation (7) DVT prophylaxis Current Visit: Yes Status: Acute (8) Hyponatremia Current Visit: Yes Status: Acute Assessment and plan: Sodium improved to 131 without intervention. We will check another one tomorrow. No obvious etiology for hyponatremia. - Subjective Interval history: Patient denies a chest pain, palpitations, GI symptoms. He states he is eating well. Denies any significant pain with his foot. He has appointment to see Dr. Marinelli tomorrow. He thinks he is ready to be going home soon and has help at home with transfers, etc. - Constitutional Vitals: Temp Pulse Resp BP Pulse Ox 98.4 F 82 16 130/67 95 10/14/18 19:31 10/14/18 19:31 10/14/18 19:31 10/14/18 19:31 10/14/18 19:31 General appearance: Present: A&O X 3, no acute distress, answers questions appropriately - Respiratory Respiratory exam: Present: CTAB - Cardiovascular Cardiovascular exam: Present: RRR, +S1, +S2, systolic murmur (2/6 systolic murmur) - GI/Abdominal GI/Abdominal exam: Present: soft. Absent: tenderness - Extremities Exam Additional comments: Right lower extremity foot is wrapped. I did not evaluate today. Being followed by wound clinic. Internal Medicine: Result - Labs CBC & Chem 7: 10/13/18 07:41 10/15/18 05:05 Labs: BMP 10/15/18 05:05 Sodium 131 L Sodium has improved to 131 Consult Discharge Plan - Plan Referrals: Ernestina Rush, MANAGER HOSPICE [Primary Care Provider] -
[2018-10-16] MEDS: *HR* Enoxaparin 40 MG/0.4 ML SYRINGE SQ SCH (05:21)
[2018-10-16] MEDS: Insulin LISPRO 300 UNITS/3 ML VIAL SQ SCH (07:51)
[2018-10-16 07:57] VITALS: BP 130/65
[2018-10-16] MEDS: Sennosides/Docusate Sodium TABLET PO SCH (08:16)
[2018-10-16] MEDS: traMADol 50 MG TABLET PO PRN (08:16)
--- NOTE | 2018-10-16 11:26 | Discharge Summary ---
- NOTES TO OUTPATIENT PROVIDER Notes to Outpatient Provider: #1. He will see Dr. Marinelli at [facility] today. #2. Home health will be arranged for nursing as well as physical therapy Date of Encounter: 10/16/18 Time of Encounter: 11:22 - Discharge Diagnosis (1) Status post transmetatarsal amputation of right foot Priority: Primary Status: Acute Comments: Patient is status post transmetatarsal amputation of the right foot by Dr. Marinelli for diabetic foot ulcer following recent revascularization of right lower extremity but Dr. Balderrama. Postoperatively he has been nonweightbearing on the right foot until it heals. He came to our facility for nonweightbearing education, physical therapy and occupational therapy. She was known peripheral neuropathy of his opposite leg he has had difficulties with maintaining walker use and will likely be in the wheelchair most of the time. He still has balance and proprioception issues. Dressings have been changed daily. He has been evaluated by wound clinic. He sees Dr. Marinelli this afternoon after discharge for a postop visit. Examination as below. (2) DM type 2 causing complication Priority: Secondary Status: Chronic Comments: Patient has diabetes mellitus and his glycohemoglobin has been under good control. He has occasional coverage for elevated blood sugars. No hypoglycemia noted. His sugars improved after discharge from [facility] to our facility. Qualifiers: Diabetes mellitus emt intermediate insulin use: without emt intermediate use Qualified Code(s): E11.8 - Type 2 diabetes mellitus with unspecified complications (3) Anemia Priority: Secondary Status: Chronic Comments: Patient has chronic anemia. He was continued on his iron supplement. No acute bleeding noted. Qualifiers: Anemia type: unspecified type Qualified Code(s): D64.9 - Anemia, unspecified (4) PVD (peripheral vascular disease) Priority: Secondary Status: Chronic Comments: Peripheral vascular disease. Recent revascularization of the right lower extremity Dr. Balderrama. He has had no claudication or cyanosis issues. (5) Constipation Priority: Secondary Status: Resolved Comments: In the recent days postop he did have constipation. Now his bowels are moving well. He will be discharged on senna. Qualifiers: Constipation type: drug induced constipation Qualified Code(s): K59.03 - Drug induced constipation (6) Hyponatremia Priority: Secondary Status: Acute Comments: Patient developed mild hyponatremia without obvious reason. Sodium went down to 129. By time of discharge it is in the 130 range now. (7) DVT prophylaxis Priority: Secondary Status: Acute Comments: While in our facility he received Lovenox for DVT prophylaxis. Hospital course: Mr. Marvin is a 82 year old male with history of diabetes and hypertension was admitted to our facility status post right transmetatarsal amputation by Dr. Marinelli. He is nonweightbearing in the right lower extremity and had to try to learn use of walker and wheelchair. He advanced with his therapies, though not great. A lot of this time is going to be in the wheelchair. He has adequate help at home with his and his son able to do the lifting. See the diagnoses above. Discharge discussed with: patient, family - Time Spent with Patient Total time spent providing and/or coordinating discharge services: - Discharge Medications Prescriptions: New Tramadol HCl [Ultram] 50 mg PO TID PRN 7 Days #20 tab PRN Reason: Mild To Moderate Pain Continued Lisinopril [Zestril] 5 mg PO DAILY Pantoprazole Sodium [Protonix] 40 mg PO DAILY Ferrous Sulfate [Iron] 325 mg PO DAILY Insulin LISPRO [Humalog Kwikpen U-100] 0 - 12 unit SQ TIDAC Sennosides/Docusate Sodium [Senna-Docusate Sodium Tablet] 1 tab PO DAILY glipiZIDE [Glipizide] 10 mg PO BID Home Medications: Ferrous Sulfate [Iron] 325 mg PO DAILY 09/24/18 [History] Insulin LISPRO [Humalog Kwikpen U-100] 0 - 12 unit SQ TIDAC 09/24/18 [History] Lisinopril [Zestril] 5 mg PO DAILY 09/24/18 [History] Pantoprazole Sodium [Protonix] 40 mg PO DAILY 09/24/18 [History] Sennosides/Docusate Sodium [Senna-Docusate Sodium Tablet] 1 tab PO DAILY 09/24/18 [History] glipiZIDE [Glipizide] 10 mg PO BID 09/24/18 [History] Tramadol HCl [Ultram] 50 mg PO TID PRN 7 Days #20 tab 10/16/18 [Rx] Allergies/Adverse Reactions: Allergy/AdvReac Type Severity Reaction Status Date / Time morphine AdvReac Hallucinati Verified 11/16/15 21:02 ng Date of admission: 10/03/18 17:29 Primary care physician: Ernestina Rush CNP Consults: 10/03/18 18:34 Consult to Occupational Therapy [CONS] Routine Comment: Evaluate, develop and implement POC Reason for Consult: multiple toe amputation Does patient have active BEDREST order?: No Is patient medically & hemodynamically stable?: Yes Patient assessed for mobility or mobilized this visit?: Yes Consult to Physical Therapy [CONS] Routine Comment: Evaluate, develop and implement POC Reason for Consult: multiple toe amputation Does patient have active BEDREST order?: No Is patient medically & hemodynamically stable?: Yes Patient assessed for mobility or mobilized this visit?: Yes Consult to Recreational Therapy [CONS] Routine Comment: Evaluate, develop and implement POC Consult to Live Truck Operator [CONS] Routine Reason for SW Consult: New admission for swing Consult to Live Truck Operator [CONS] Routine Reason for SW Consult: d/c planning 10/03/18 18:43 Consult to Wound Care [CONS] Routine Reason for Consult: multiple toe amputation, 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 Call Completed: Yes 10/03/18 18:51 Consult to Nutrition [CONS] Routine Comment: Consulting Provider: NUTRITION Reason for Dietary Consult: Diet Education PO Supplementation Discharging clinician: Oscar Zayas Anticipated date of discharge: 10/16/18 - Constitutional Vitals: Temp Pulse Resp BP Pulse Ox 97.8 F 76 14 130/65 97 10/16/18 07:00 10/16/18 07:00 10/16/18 07:00 10/16/18 07:00 10/16/18 07:00 General appearance: Present: A&O X 3, no acute distress, answers questions appropriately - Respiratory Respiratory exam: Present: CTAB - Cardiovascular Cardiovascular exam: Present: RRR, +S1, +S2, systolic murmur (2/6 Systolic murmur) - GI/Abdominal GI/Abdominal exam: Present: soft. Absent: tenderness - Extremities Exam Additional comments: No edema of lower extremities. Examination of right foot as below. - Incison Comments: Right foot was evaluated. His sutures and lexii are intact. There is dried blood between the lexii. There is mild maceration on the lateral aspect of the incision. There is no purulent drainage. There is appropriate amount of redness along the incision line, the extensive redness over the dorsum and plantar surface has receded considerably. Healing blisters on the right lateral aspect of his foot. Has a scab over the open wound on the dorsum of the foot which is healing. Posterior calcaneus area has a blister with slight brownish drainage without odor. It is covered with Allevyn for protection. There is no heel breakdown. - Patient Status Disposition: Home Health Service Functional capacity at discharge: wheelchair bound Overall status at discharge: patient is not back to baseline - Discharge Instructions Instructions: Toe Amputation (DC) Follow Up With: Oscar Zayas MD [Partnered Physician] - 11/12/18 2:30 pm - Diet and Activity Activity: as per physical therapy Diet: diabetic diet, low salt diet
--- NOTE | 2018-10-16 11:30 | Physician Discharge Referral ---
Home Health/Hosp Referral Info Transfer to: Home Health Provider in Charge Post Discharge: PCP (Inder Rsuh CNP) - Diagnosis (1) Status post transmetatarsal amputation of right foot Priority: Primary Status: Acute (2) Anemia Priority: Secondary Status: Chronic (3) DM type 2 causing complication Priority: Secondary Status: Chronic (4) PVD (peripheral vascular disease) Priority: Secondary Status: Chronic (5) Constipation Priority: Secondary Status: Resolved (6) Hyponatremia Priority: Secondary Status: Acute (7) DVT prophylaxis Priority: Secondary Status: Acute - Respiratory Orders Smoking Cessation: Smoking cessation has been advised. For more information, call the [place] Tobacco Quit Line at 8-361-DXIFNOW. - Dressing/Wound Care Type of Dressing/Treatments w/Frequency: see wound clinic info - Activity Activity Orders: Walker - Services Needed Following services are medically necessary services: Nursing, Physical Therapy - Transfer Medications Prescriptions: Tramadol HCl [Ultram] 50 mg PO TID PRN 7 Days #20 tab PRN Reason: Mild To Moderate Pain Home Medications: Ferrous Sulfate [Iron] 325 mg PO DAILY 09/24/18 [History] Insulin LISPRO [Humalog Kwikpen U-100] 0 - 12 unit SQ TIDAC 09/24/18 [History] Lisinopril [Zestril] 5 mg PO DAILY 09/24/18 [History] Pantoprazole Sodium [Protonix] 40 mg PO DAILY 09/24/18 [History] Sennosides/Docusate Sodium [Senna-Docusate Sodium Tablet] 1 tab PO DAILY 09/24/18 [History] glipiZIDE [Glipizide] 10 mg PO BID 09/24/18 [History] Tramadol HCl [Ultram] 50 mg PO TID PRN 7 Days #20 tab 10/16/18 [Rx] Allergies/Adverse Reactions: Allergy/AdvReac Type Severity Reaction Status Date / Time morphine AdvReac Hallucinati Verified 11/16/15 21:02 ng Certification: Further, I certify that my clinical findings support that this patient is homebound (i.e. absences from home require considerable and taxing effort and are for medical reasons or zoroastrianism services or infrequently or short duration when for other reasons) because: Homebound Reason: Patient requires assistance of a person or device to safely leave home, Post-surgery restriction and or conditions limit ability to leave home, Leaving home requires considerable and taxing effort due to condition Attestation: My signature below is to certify that this patient is under my care and that I, or nurse practitioner, or a physician's surgical first assistant working with me, has a [id number] encounter with this patient.
== END 2018-10-16 12:14 | disposition home health service (06) | DRG 560 ==
LOC: INPGRE 17:29
PROVIDERS: ADMIT Family Medicine; ATTEND Family Medicine